=== PATIENT | female | born 1990 | race Asian ===

== ENCOUNTER 2024-04-21 12:24 | Emergency (ER) | payer SELFPAY ==
[2024-04-21 12:27] VITALS: BP 119/60
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
[2024-04-21] MEDS: TYLENOL 650 MG PO (15:16)
[2024-04-21 15:33] VITALS: BP 120/60
== END 2024-04-21 15:36 | disposition home or self-care (01) ==
LOC: EMR 12:24
PROVIDERS: EMERGENCY PHYSICIAN Emergency Medicine
DX: R51.9 Headache, unspecified (principal); V43.52XA Car driver injured in collision with other type car in traffic accident, initial encounter; Y92.410 Unspecified street and highway as the place of occurrence of the external cause
CPT/HCPCS: 99284; 70450